=== PATIENT | female | born 1995 | race Caucasian/White ===

== ENCOUNTER 2020-11-11 23:40 | Emergency (ER) | payer OTHER, SELFPAY ==
--- OUTSIDE RECORDS SUMMARY | 2020-11-11 23:43 | XMS REPORT | Continuity of Care Document ---
:1995 Author Organization [facility] t Address [address] [place] [address] Care Team Providers Name Role Phone Visit, Nurse Attending Clinician Unavailable Love Fong Attending Clinician Problems This patient has no known problems. Allergies, Adverse Reactions, Alerts This patient has no known allergies or adverse reactions. Medications This patient has no known medications. Procedures This patient has no known procedures. Encounters Start End Encounter Admission Attending Care Care Encounter Source Date/Time Date/Time Type Type Clinicians Facility Department ID 2020-09-13 2020-09-13 Nurse Visit, [facility] [id number] 13:46:12 14:06:08 Visit Cele SED [employer] TE[employer]ER [id number] Nurse REGIONAL [id number] MATERNAL [id number] & CHILD 107 [facility] 2020-06-12 2020-06-12 Telephone BIBI Delacruz [id number] 00:00:00 00:00:00 Jamila Aleman [employer] TE[employer] [id number] REGIONAL [id number] MATERNAL [id number] & CHILD 107 [facility] Results This patient has no known results.
--- OUTSIDE RECORDS SUMMARY | 2020-11-11 23:44 | XMS REPORT | Summary of Care ---
:1995 Author Organization [facility] Address [address] [place] [address] Care Team Providers Name Role Phone Srini Mclaughlin [facility] Primary Care Provider Reason for Visit Reason Comments NURSE VISIT Encounter Details Date Type Department Care Team Description 09/13/2020 Nurse Visit [facility]- Babak Mclaughlin, [facility] [address] [place] [address] Chlamydia (Primary Dx) [place] Visit, [facility] Nurse [address] [place] [address] Allergies No Known Allergiesdocumented as of this encounter (statuses as of 09/13/2020) Medications Medication Sig Dispensed Refills Start Date End Date Status metroNIDAZOLE 500 mg Take 1 tablet by 14 tablet 0 01/07/2017 Active tabletIndications: mouth 2 (two) Bacterial vaginosis times daily. documented as of this encounter (statuses as of 09/13/2020) Active Problems Problem Noted Date Papanicolaou smear of cervix with low grade squamous i ntraepithelial 06/12/2020 lesion (LGSIL) Overview: LGSIL (2019), patient needs to RTC in 1 year for repeat pap smear. 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 02/28/2017 Other general counseling and advice for contraceptive 201302/28/2014 management Overview: RTC for Nexplanon Anemia of mother in , condition 02/21/20 14 09/25/2015 Teen 01/27/2014 02/20/2014 Very young maternal age, antepartum 01/27/201401/25 Normal delivery 01/27/2014 02/28/2014 Overview: on 01/27/14 @ 1616 [facility] [place] IV analgesia Hx social Other threatened labor, antepartum 01/12/201401/29 Abnormal weight gain in 12/26/20132013 Rash and other nonspecific skin eruption 12/26/2013 01/29/2014 Leg cramps in 12/26/2013 01/26/2014 Pelvic cramping in antepartum period 12/26/201312/2013 History of cocaine abuse 12/02/2013 02/20/2014 Overview: Quit Cannabis abuse 09/13/2013 02/20/2014 Non compliance w medication regimen 08/02/2013 04/0 03/2014 Immune to varicella 07/18/2013 01/26/2014 Rubella immune 07/18/2013 01/26/2014 BV (bacterial vaginosis) 07/05/2013 08/17/2013 Need for rmzvzejrdy-zkeoqmw-rafejjpvu (Tdap) vaccine 013 12/26/2013 Overview: Will give at 28 wks Need for prophylactic vaccination and inoculation against 01/29/2014 influenza Overview: Given 07/05/2013 Supervision of normal 07/05/2013 02/21/20 14 documented as of this encounter (statuses as of 09/13/2020) Immunizations Name Administration Dates Next Due HPV9 02/24/2018, 03/10/2017, 01/07/2017 Influenza Virus Vaccine 07/05/2013 TDAP 11/08/2013 documented as of this encounter Social History Tobacco Use Types Packs/Day Years Used Date Current Every Day Smoker Cigarettes 0.5 Sta rted: 11/27/2011 Smokeless Tobacco: Never Used Comments: smokes whole pack per day Alcohol Use Drinks/Week oz/Week Comments Not Currently 0 Standard drinks or equivalent Social Sex Assigned at Date Recorded Not on file documented as of this encounter Last Filed Vital Signs Not on filedocumented in this encounter Plan of Treatment Name Type Priority Associated Diagnoses Date/Ti me GC & CHLAMYDIA AMPLIFIED LAB Routine Chlamydia 2:12 PM CARDIOLOGY NURSE ASSAY Name Type Priority Associated Diagnoses Order S chedule GC & CHLAMYDIA AMPLIFIED LAB Routine Chlamydia Exp ected: 09/13/2020, ASSAY Expires: 2020 Health Maintenance Due Date Last Done Comments INFLUENZA VACCINE (#1) 2021 07/05/2013 Postponed from 06/26/2020 (Alternative Guidelines) CHLAMYDIA SCREENING 05/28/2021 05/28/2020, 05/28/2020, 04/27/2018, Additional history exists Depression Screening 05/28/2021 05/28/2020 MENINGOCOCCAL B VACCINES (1 05/28/2021 Post poned from of 2 - Risk Bexsero 2-dose 04/17 (Refused) series) VARICELLA VACCINES (1 of 2 05/28/2021 Postp oned from - 2-dose childhood series) 04/17 (Alternative Guidelines) PAP SMEAR 05/28/2023 05/28/2020, 05/28/2020 DTaP,Tdap,and Td Vaccines 11/08/2023 11/08/2013 (2 - Td) HPV VACCINES Completed 02/24/2018, 03/10/2017, 01/07/2017 PNEUMOCOCCAL 0-64 YEARS Discontinued COMBINED SERIES documented as of this encounter Results Not on filedocumented in this encounter Visit Diagnoses Diagnosis Chlamydia - Primary Other specified chlamydial infection, in conditions classified elsewhere and of unspecified site documented in this encounter Insurance Payer Benefit Plan Subscriber ID Effective Phone Address Typ e / Group Dates [facility] [id number] 2016-Pres [phone] [address] Medicaid WOMEN ent [address] [place] [address] documented as of this encounter Advance Directives Name Relationship Healthcare Agent Communication Relationship Yue Villasenor Mother Health Care Agent Mar Mcqueen Other [facility] Care Agent (Mobile)
[2020-11-12] MEDS ORDERED: DIPHENHYDRAMINE 25 MG TAB/CAP ONE (00:26)
[2020-11-12] MEDS ORDERED: FAMOTIDINE 20 MG TAB ONE (00:27)
[2020-11-12] MEDS ORDERED: predniSONE 20 MG TAB ONE (00:27)
--- NOTE | 2020-11-12 00:49 | ER ---
Nurse's Notes [facility] Name: Carie Douglass Age: 25 yrs Sex: Female : 1995 Arrival Date: 11/11/2020 Time: 23:49 Bed 5 Private MD: Diagnosis: Urticaria, unspecified Presentation: 11/11 23:58 Chief complaint: Patient states: i have rash and itchiness in my whole body for 2 days. mg2 i took benadryl this morning and it helped a little bit. Coronavirus screen: Client denies travel out of the [place] in the last 14 days. At this time, the client does not indicate any symptoms associated with coronavirus-19. Ebola Screen: No symptoms or risks identified at this time. Initial Sepsis Screen: Does the patient meet any 2 criteria? No. Patient's initial sepsis screen is negative. Does the patient have a suspected source of infection? No. Patient's initial sepsis screen is negative. Risk Assessment: Do you want to hurt yourself or someone else? Patient reports no desire to harm self or others. Onset of symptoms was November 10, 2020. 23:58 Method Of Arrival: Ambulatory mg2 23:58 Acuity: GERALDO 4 mg2 Triage Assessment: 11/12 00:01 General: Appears in no apparent distress. comfortable, Behavior is calm, cooperative. mg2 Pain: Denies pain. 00:01 Derm: Rash noted that is macular, itchy, red, raised. 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 - Social history:: Smoking status: Patient reports the use of cigarette tobacco products, smokes one pack cigarettes per day. Patient uses alcohol, Patient/guardian denies using street drugs, IV drugs. Screenin:03 Abuse screen: Denies threats or abuse. Denies injuries from another. Nutritional mg2 screening: No deficits noted. Tuberculosis screening: No symptoms or risk factors identified. Fall Risk None identified. Assessment: 00:02 General: see triage note. mg2 Vital Signs: 11/11 23:58 BP 136 / 85; Pulse 92; Resp 18; Temp 98.3; Pulse Ox 100% on R/A; Weight 95.25 kg; mg2 Height 5 ft. 6 in. (167.64 cm); Pain 0/10; 23:58 Body Mass Index 33.89 (95.25 kg, 167.64 cm) mg2 ED Course: 23:49 Patient arrived in ED. cf2 23:58 Ángel Ambrose RN is Primary Nurse. mg2 23:59 Jh Hill MD is Attending Physician. [facility] 23:59 Triage completed. mg2 11/12 00:01 Arm band placed on. mg2 00:04 Patient has correct armband on for positive identification. mg2 00:04 No provider procedures requiring assistance completed. Patient did not have IV access mg2 during this emergency room visit. Administered Medications: 00:13 Drug: Benadryl 50 mg Route: PO; mg2 00:55 Follow up: Response: No adverse reaction mg2 00:13 Drug: predniSONE 60 mg Route: PO; mg2 00:55 Follow up: Response: No adverse reaction mg2 00:13 Drug: Pepcid 20 mg Route: PO; mg2 00:54 Follow up: Response: No adverse reaction mg2 Outcome: 00:48 Discharge ordered by . 7 00:55 Discharged to home ambulatory. mg2 00:55 Condition: stable 00:55 Discharge instructions given to patient, Instructed on discharge instructions, follow up and referral plans. medication usage, Demonstrated understanding of instructions, follow-up care, medications, Prescriptions given X 3. 00:56 Patient left the ED. mg2 Signatures: Ángel Ambrose RN RN mg2 Nehemias Ozuna 2 Jh Hill MD MD [facility]
--- NOTE | 2020-11-12 00:49 | EDPHYS ---
Physician Documentation [facility] Name: Carie Douglass Age: 25 yrs Sex: Female : 1995 Arrival Date: 11/11/2020 Time: 23:49 Bed 5 Private MD: ED Physician Jh Hill HPI: 11/12 00:07 This 25 yrs old Female presents to ER via Ambulatory with complaints of Rash. [facility] 00:08 The patient's rash thought to be caused by an unknown cause. The rash is located on the mh7 back, abdomen, right arm, left arm, right leg and left leg. The rash can be described as diffuse, urticarial. Onset: The symptoms/episode began/occurred yesterday. Associated signs and symptoms: Pertinent positives: itching, Pertinent negatives: burning sensation, difficulty breathing, fever, nausea, Pain swelling of lips, swelling of throat, swelling of tongue, vomiting, wheezing. Severity of symptoms: At their worst the symptoms were mild in the emergency department the symptoms are unchanged. Treatment given at home: Benadryl, yesterday morning only. 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 - Social history:: Smoking status: Patient reports the use of cigarette tobacco products, smokes one pack cigarettes per day. Patient uses alcohol, Patient/guardian denies using street drugs, IV drugs. ROS: 00:08 Constitutional: Negative for fever, chills, and weight loss, Eyes: Negative for injury, mh7 pain, redness, and discharge, ENT: Negative for injury, pain, and discharge, Neck: Negative for injury, pain, and swelling, Cardiovascular: Negative for chest pain, palpitations, and edema, Respiratory: Negative for shortness of breath, cough, wheezing, and pleuritic chest pain, Abdomen/GI: Negative for abdominal pain, nausea, vomiting, diarrhea, and constipation, Back: Negative for injury and pain, : Negative for injury, bleeding, discharge, and swelling, MS/Extremity: Negative for injury and deformity, Neuro: Negative for headache, weakness, numbness, tingling, and seizure, Psych: Negative for depression, anxiety, suicide ideation, homicidal ideation, and hallucinations, Endocrine: Negative for neck swelling, polydipsia, polyuria, polyphagia, and marked weight changes, Hematologic/Lymphatic: Negative for swollen nodes, abnormal bleeding, and unusual bruising. Exam: 00:08 Constitutional: This is a well developed, well nourished patient who is awake, alert, mh7 and in no acute distress. Head/Face: Normocephalic, atraumatic. Eyes: Pupils equal round and reactive to light, extra-ocular motions intact. Lids and lashes normal. Conjunctiva and sclera are non-icteric and not injected. Cornea within normal limits. Periorbital areas with no swelling, redness, or edema. Neck: Trachea midline, no thyromegaly or masses palpated, and no cervical lymphadenopathy. Supple, full range of motion without nuchal rigidity, or vertebral point tenderness. No Meningismus. Chest/axilla: Normal chest wall appearance and motion. Nontender with no deformity. No lesions are appreciated. Cardiovascular: Regular rate and rhythm with a normal S1 and S2. No gallops, murmurs, or rubs. Normal PMI, no JVD. No pulse deficits. Respiratory: Lungs have equal breath sounds bilaterally, clear to auscultation and percussion. No rales, rhonchi or wheezes noted. No increased work of breathing, no retractions or nasal flaring. Abdomen/GI: Soft, non-tender, with normal bowel sounds. No distension or tympany. No guarding or rebound. No evidence of tenderness throughout. Back: No spinal tenderness. No costovertebral tenderness. Full range of motion. MS/ Extremity: Pulses equal, no cyanosis. Neurovascular intact. Full, normal range of motion. Neuro: Awake and alert, GCS 15, oriented to person, place, time, and situation. Cranial nerves II-XII grossly intact. Motor strength 5/5 in all extremities. Sensory grossly intact. Cerebellar exam normal. Normal gait. Psych: Awake, alert, with orientation to person, place and time. Behavior, mood, and affect are within normal limits. 00:08 Skin: rash a mild rash is noted, urticaria, on the back, abdomen, right arm, left arm, right leg and left leg. Vital Signs: 11/11 23:58 BP 136 / 85; Pulse 92; Resp 18; Temp 98.3; Pulse Ox 100% on R/A; Weight 95.25 kg; mg2 Height 5 ft. 6 in. (167.64 cm); Pain 0/10; 23:58 Body Mass Index 33.89 (95.25 kg, 167.64 cm) mg2 MDM: 11/12 00:46 Differential diagnosis: impetigo, varicella, allergic reaction, parasite infection. [facility] Data reviewed: vital signs, nurses notes. Data interpreted: Pulse oximetry: on room air is 100 %. Interpretation: normal. Counseling: I had a detailed discussion with the patient and/or guardian regarding: the historical points, exam findings, and any diagnostic results supporting the discharge/admit diagnosis, the presence of at least one elevated blood pressure reading (>120/80) during this emergency department visit, the need for outpatient follow up, to return to the emergency department if symptoms worsen or persist or if there are any questions or concerns that arise at home. Response to treatment: the patient's symptoms have markedly improved after treatment. 00:48 Patient medically screened. [facility] Administered Medications: 00:13 Drug: Benadryl 50 mg Route: PO; mg2 00:55 Follow up: Response: No adverse reaction mg2 00:13 Drug: predniSONE 60 mg Route: PO; mg2 00:55 Follow up: Response: No adverse reaction mg2 00:13 Drug: Pepcid 20 mg Route: PO; mg2 00:54 Follow up: Response: No adverse reaction mg2 Disposition: 11/12/20 00:48 Discharged to Home. Impression: Urticaria, unspecified. - Condition is Stable. - Discharge Instructions: Hives, [id number], Allergies, Auxw-[id number]. - Prescriptions for Benadryl 25 mg Oral Capsule - take 1 capsule by ORAL route every 6 hours As needed; 30 tablet. Pepcid 20 mg Oral Tablet - take 1 tablet by ORAL route every 12 hours for 5 days; 10 tablet. Prednisone 20 mg Oral Tablet - take 2 tablet by ORAL route once daily for 5 days; 10 tablet. - Medication Reconciliation Form, Thank You Letter, Antibiotic Education, Prescription Opioid Use form. - Follow up: Private Physician; When: 1 - 2 days; Reason: Worsening of condition, Recheck today's complaints, Continuance of care, Re-evaluation by your physician. - Problem is new. - Symptoms have improved. Signatures: Ángel Ambrose RN RN mg2 Jh Hill MD MD mh7 Corrections: (The following items were deleted from the chart) 00:56 00:48 11/12/2020 00:48 Discharged to Home. Impression: Urticaria, unspecified. mg2 Condition is Stable. Forms are Medication Reconciliation Form, Thank You Letter, Antibiotic Education, Prescription Opioid Use. Follow up: Private Physician; When: 1 - 2 days; Reason: Worsening of condition, Recheck today's complaints, Continuance of care, Re-evaluation by your physician. Problem is new. Symptoms have improved. mh7
[2020-11-12 01:00] VITALS: BP 136/85; TEMP 98.3; O2SAT 100
== END 2020-11-12 00:56 | disposition home or self-care (01) ==
LOC: ER 23:40
DX: L50.9 Urticaria, unspecified (principal); F17.210 Nicotine dependence, cigarettes, uncomplicated
CPT/HCPCS: 99283; J7512

== ENCOUNTER 2021-02-22 17:16 | Emergency (ER) | payer OTHER ==
--- OUTSIDE RECORDS SUMMARY | 2021-02-22 17:18 | XMS REPORT | Continuity of Care Document ---
:1995 Author Organization [facility] t Address [address] [place] [address] Care Team Providers Name Role Phone Srini Matthew Attending Clinician Problems This patient has no known problems. Allergies, Adverse Reactions, Alerts This patient has no known allergies or adverse reactions. Medications This patient has no known medications. Procedures This patient has no known procedures. 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
--- NOTE | 2021-02-22 18:04 | EDPHYS ---
Physician Documentation [facility] Name: Carie Douglass Age: 25 yrs Sex: Female : 1995 Arrival Date: 02/22/2021 Time: 17:21 Bed 5 Private MD: ED Physician Martin Hamilton HPI: 02/22 18:22 This 25 yrs old Female presents to ER via Ambulatory with complaints of jr8 Toothache. 18:22 The patient presents with pain. The problem is located in the left upper jaw. Onset: jr8 The symptoms/episode began/occurred gradually, 2 day(s) ago. Duration: The symptoms are continuous, and are steadily getting worse. Modifying factors: The symptoms are alleviated by nothing, the symptoms are aggravated by chewing, talking. Associated signs and symptoms: The patient has no apparent associated signs or symptoms. Severity of symptoms: At their worst the symptoms were moderate, in the emergency department the symptoms are unchanged. The patient has not experienced similar symptoms in the past. The patient has not recently seen a physician. Historical: - Allergies: 17:28 No Known Allergies; hb - Home Meds: 17:28 Vitamin Oral tab 1 tab once daily [Active]; hb - PMHx: 17:28 None; hb - PSHx: 17:28 None; hb - Immunization history:: Adult Immunizations up to date. - Social history:: Smoking status: Patient denies any tobacco usage or history of. ROS: 18:22 Constitutional: Negative for fever, chills, and weight loss, Eyes: Negative for injury, jr8 pain, redness, and discharge, Neck: Negative for injury, pain, and swelling. 18:22 ENT: Positive for dental pain. 18:22 All other systems are negative. Exam: 18:22 Constitutional: This is a well developed, well nourished patient who is awake, alert, jr8 and in no acute distress. Head/Face: Normocephalic, atraumatic. Eyes: Pupils equal round and reactive to light, extra-ocular motions intact. Lids and lashes normal. Conjunctiva and sclera are non-icteric and not injected. Cornea within normal limits. Periorbital areas with no swelling, redness, or edema. Neck: Trachea midline, no thyromegaly or masses palpated, and no cervical lymphadenopathy. Supple, full range of motion without nuchal rigidity, or vertebral point tenderness. No Meningismus. Cardiovascular: Regular rate and rhythm with a normal S1 and S2. No gallops, murmurs, or rubs. Normal PMI, no JVD. No pulse deficits. Respiratory: Lungs have equal breath sounds bilaterally, clear to auscultation and percussion. No rales, rhonchi or wheezes noted. No increased work of breathing, no retractions or nasal flaring. Skin: Warm, dry with normal turgor. Normal color with no rashes, no lesions, and no evidence of cellulitis. Neuro: Awake and alert, GCS 15, oriented to person, place, time, and situation. Motor strength 5/5 in all extremities. Sensory grossly intact. 18:22 ENT: Exam is negative for injury of acute deformity, earache, ear discharge, TM abnormalities, nasal discharge, Mouth: Lips: moist, Oral mucosa: pink and intact, moist, Gums: reddened, swollen, on the upper left second molar and upper left third molar, Tongue: is moist, Posterior pharynx: Airway: patent, Tonsils: are normal in appearance, Uvula: midline, non-edematous, no erythema, swelling, is not appreciated, erythema, is not appreciated, exudate, is not appreciated, Dental exam: pain, that is moderate, specifically in the upper left third molar (#16), third molar coming in on left side. Moderate pain to palpation with surrounding gum swelling and erythema. No abscess identified . Vital Signs: 17:26 BP 124 / 74; Pulse 72; Resp 16; Temp 97.8; Pulse Ox 100% on R/A; Pain 9/10; hb MDM: 17:32 Patient medically screened. [facility] 18:00 Data reviewed: vital signs, nurses notes, and as a result, I will discharge patient. jr Data interpreted: Pulse oximetry: on room air is 100 %. Interpretation: normal. Counseling: I had a detailed discussion with the patient and/or guardian regarding: the historical points, exam findings, and any diagnostic results supporting the discharge/admit diagnosis, the need for outpatient follow up, a dentist. Administered Medications: No medications were administered Disposition: 02/23 08:00 Co-signature as Attending Physician, Martin Hamilton MD I agree with the assessment and carlos plan of care. Disposition: 02/22/21 18:03 Discharged to Home. Impression: Disturbances in tooth eruption. - Condition is Stable. - Discharge Instructions: Dental Pain. - Prescriptions for Amoxicillin 875 mg Oral Tablet - take 1 tablet by ORAL route every 12 hours for 7 days; 14 tablet. Tylenol- Codeine #3 300-30 mg Oral Tablet - take 2 tablets by ORAL route every 4-6 hours As needed; 12 tablet. - Medication Reconciliation Form, Thank You Letter, Antibiotic Education, Prescription Opioid Use, Work release form form. - Follow up: Private Physician; When: 1 week; Reason: Recheck today's complaints, Continuance of care, Re-evaluation by your physician. - Problem is new. - Symptoms have improved. Signatures: Martin Hamilton MD MD cha Roszak, Josh, PA PA jr8 Christy Cristina, RN RN Chino Jaffe RN RN bp Corrections: (The following items were deleted from the chart) 02/22 18:11 18:03 02/22/2021 18:03 Discharged to Home. Impression: Disturbances in tooth eruption. bp Condition is Stable. Forms are Medication Reconciliation Form, Thank You Letter, Antibiotic Education, Prescription Opioid Use. Follow up: Private Physician; When: 1 week; Reason: Recheck today's complaints, Continuance of care, Re-evaluation by your physician. Problem is new. Symptoms have improved. jr8
--- NOTE | 2021-02-22 18:04 | ER ---
Nurse's Notes [facility] Name: Carie Douglass Age: 25 yrs Sex: Female : 1995 Arrival Date: 02/22/2021 Time: 17:21 Bed 5 Private MD: Diagnosis: Disturbances in tooth eruption Presentation: 02/22 17:26 Chief complaint: Left upper tooth broke last night, c/o pain 9/10. Coronavirus screen: hb At this time, the client does not indicate any symptoms associated with coronavirus-19. Ebola Screen: No symptoms or risks identified at this time. Initial Sepsis Screen: Does the patient meet any 2 criteria? No. Patient's initial sepsis screen is negative. Does the patient have a suspected source of infection? No. Patient's initial sepsis screen is negative. Risk Assessment: Do you want to hurt yourself or someone else? Patient reports no desire to harm self or others. Onset of symptoms was February 22, 2021. 17:26 Method Of Arrival: Ambulatory hb 17:26 Acuity: GERALDO 4 hb Triage Assessment: 17:30 General: Appears distressed, uncomfortable, Behavior is cooperative, appropriate for bp age, anxious. Pain: Complains of pain in mouth. EENT: Reports pain in mouth. Neuro: No deficits noted. Cardiovascular: No deficits noted. Respiratory: No deficits noted. GI: No signs and/or symptoms were reported involving the gastrointestinal system. : No signs and/or symptoms were reported regarding the genitourinary system. Derm: No deficits noted. Musculoskeletal: No deficits noted. Historical: - Allergies: 17:28 No Known Allergies; hb - Home Meds: 17:28 Vitamin Oral tab 1 tab once daily [Active]; hb - PMHx: 17:28 None; hb - PSHx: 17:28 None; hb - Immunization history:: Adult Immunizations up to date. - Social history:: Smoking status: Patient denies any tobacco usage or history of. Screenin:30 Abuse screen: Denies threats or abuse. Denies injuries from another. Nutritional bp screening: No deficits noted. Tuberculosis screening: No symptoms or risk factors identified. Fall Risk None identified. Assessment: 17:30 General: SEE TRIAGE NOTE. bp 18:09 Reassessment: PT D/C HOME AMBULATORY, DX WITH DISRUPTION IN TOOTH ERUPTION. bp Vital Signs: 17:26 BP 124 / 74; Pulse 72; Resp 16; Temp 97.8; Pulse Ox 100% on R/A; Pain 9/10; hb ED Course: 17:21 Patient arrived in ED. am2 17:27 Triage completed. hb 17:28 Arm band placed on. hb 17:30 Patient has correct armband on for positive identification. Bed in low position. Call bp light in reach. Side rails up X2. 17:32 Orion Walter PA is PHCP. jr8 17:32 Martin Hamilton MD is Attending Physician. jr8 18:00 Chino Jaffe, RN is Primary Nurse. bp 18:09 No provider procedures requiring assistance completed. Patient did not have IV access bp during this emergency room visit. Administered Medications: No medications were administered Outcome: 18:03 Discharge ordered by . jr8 18:10 Discharged to home ambulatory. bp 18:10 Condition: stable 18:10 Discharge instructions given to patient, Instructed on discharge instructions, follow up and referral plans. medication usage, Demonstrated understanding of instructions, follow-up care, medications, Prescriptions given X 2. 18:11 Patient left the ED. bp Signatures: Orion Walter PA PA jr8 Christy Cristina, RN RN Clarice Dewey am2 Chino Jaffe, RN RN bp
[2021-02-22 18:29] VITALS: BP 124/74; TEMP 97.8; O2SAT 100
== END 2021-02-22 18:11 | disposition home or self-care (01) ==
LOC: ER 17:16
DX: K00.6 Disturbances in tooth eruption (principal)
CPT/HCPCS: 99282